=== PATIENT | female | born 1995 | race Caucasian/White ===

== ENCOUNTER 2017-04-12 07:20 | Emergency (ER) | payer OTHER ==
[~2017-04-12] VITALS: Ht 152.4 cm; Wt 97.0 kg
[~2017-04-12 07:20] MED LIST: ALB.5NB20 IH; CEPH-443 PO; CIPR500T4 PO; HYDR-3498 PO; ONDA4TAB14 PO
[2017-04-12 07:23] VITALS: Ht 152.4 cm; Wt 97.0 kg
--- NOTE | 2017-04-12 08:59 | ERD ---
ER Documentation Chief Complaint Chief Complaint BILATERAL ARM NUMBNESS X 1 WEEK HPI 21-year-old female complaining of bilateral hand pain 5-6 days. Patient stated the pain is in the palm of her both hands, and radiates up her arms. The pain is constant, feels like sharp and pressure. The pain is worse with certain movements such as when she is trying to cloth picker things, or with wrist hyperextension. Patient reports numbness of bilateral third and fourth fingers at the onset of the symptoms. The numbness is worse at night, she reports she could not sleep because of numbness. Patient normally sleeps on her stomach with bilateral hands folded under her head. The numbness is resolved at this time. Denies fever or chills. Denies injury. Patient has ibuprofen 800 mg at home. 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 Denies any other medical conditions. ROS All systems reviewed and are negative except as per history of present illness. Medications Home Meds Active Scripts Ondansetron (Ondansetron Odt) 4 Mg Tab.rapdis, 4 MG PO Q6H Y for NAUSEA AND/OR VOMITING, #10 TAB Prov:NAVA RUBIO 02/25/16 Ciprofloxacin Hcl* (Ciprofloxacin Hcl*) 500 Mg Tablet, 500 MG PO BID for 5 Days , TAB Prov:NAVA RUBIO 02/25/16 Cephalexin* (Keflex*) 500 Mg Capsule, 500 MG PO QID for 5 Days, CAP Prov:CARMELO CROCKER MD 10/28/15 Hydrocodone Bit-Acetaminophen* ([place]*) 5-325 Mg Tab, 1 TAB PO Q6 Y for PAIN, # 14 TAB Prov:CARMELO CROCKER MD 10/28/15 Reported Medications Albuterol Sulfate* (Albuterol Sulfate* Neb) 20 Ml Nebu, 20 ML IH Q4 Y 05/25/13 Allergies Allergies: Coded Allergies: No Known Drug Allergies (Verified Allergy, Unknown, 04/12/17) PMhx/Soc History of Surgery: Yes (TONSILS, L2 back surgery.) Anesthesia Reaction: No Hx Neurological Disorder: No Hx Respiratory Disorders: Yes (ASTHMA) Hx Cardiac Disorders: No Hx Psychiatric Problems: No Hx Miscellaneous Medical Probl: No (CHRONIC BACK PAIN) Hx Alcohol Use: No Hx Substance Use: Yes (MARAJUANA) Hx Tobacco Use: No Smoking Status: Never smoker Physical Exam Vitals Vital Signs Date Time Temp Pulse Resp B/P Pulse Ox O2 Delivery O2 Flow Rate FiO2 04/12/17 07:23 98.1 79 18 146/67 98 Physical Exam General: Well-developed, well-nourished, conscious and coherent, in no distress Skin: Warm and dry without rash, good texture and turgor Head: Normocephalic without evidence of trauma Eyes: Sclera and conjunctivae normal; pupils equal, round, and reactive to light; extraocular movements are intact Chest: Normal AP diameter. Good expansion without retractions. Nontender. Lungs are clear to auscultate bilaterally with good tidal volume Heart: Regular rate and rhythm. No murmur, rub, or gallops heard Extremities: Mild tenderness at the thenar prominence of the bilateral hands. Tinel's test negative bilaterally. Phalen's test positive bilaterally. Full range of motion. Good strength bilaterally. No clubbing, cyanosis, or edema. Peripheral pulses are intact. Sensation intact Neuro: Alert and oriented 4, GCS 15. Cranial nerves grossly intact. Motor and sensory exams nonfocal. Moves all extremities. Speech clear. Gait normal Procedures/MDM Well-appearing 21-year-old female presented to ED with bilateral hand pain and numbness 1 week. Based on patient's history exam findings, I suspect the patient may have a mild form of carpal tunnel syndrome bilaterally. I doubt fractures or dislocations. Bilateral wrists were immobilized with Velcro wrist splints. Patient was noted to be comfortable and neurovascularly intact both before and after the immobilization. Patient is advised to follow-up with her PCP for orbital referral if symptoms does not resolve. Patient appears well, stable for discharge and outpatient management. Medical decision making shared with patient and family. Education provided to patient and family. Patient and family expressed understanding of the plan. Medications on discharge: None. Follow-up: Primary care provider in 2-3 days or return to ED if worse. Disclaimer: Inadvertent spelling and grammatical errors are likely due to EHR/ dictation software use and do not reflect on the overall quality of patient care. Also, please note that the electronic time recorded on this note does not necessarily reflect the actual time of the patient encounter. Departure Diagnosis: Primary Impression: Carpal tunnel syndrome, bilateral Condition: Stable Patient Instructions: What Is Carpal Tunnel Syndrome (CTS)?, Carpal Tunnel Syndrome Prevention Tips Additional Instructions: Call your primary care doctor TOMORROW for an appointment during the next 1 WEEK.Tell the press secretary that you were referred from this facility.See the doctor sooner or return here if your condition worsens before your appointment time. CARIDAD MURPHY NP Apr 12, 2017 08:58
== END 2017-04-12 08:30 | disposition home or self-care (01) ==
LOC: FTE 07:20
DX: G56.03 Carpal tunnel syndrome, bilateral upper limbs (principal); J45.909 Unspecified asthma, uncomplicated
CPT/HCPCS: 29125; Z7502